=== PATIENT | male | born 1990 | race Caucasian/White ===

== ENCOUNTER 2016-10-17 09:08 | Emergency (ER) | payer OTHER ==
[2016-10-17 09:13] VITALS: BP 113/67; PULSE 67; RESP 18; TEMP 98.3; O2SAT 98
[2016-10-17] MEDS ORDERED: Sodium Chloride 0.9% 1,000 ML IV STA (09:30)
--- NOTE | 2016-10-17 09:59 | ED PDOC ---
Syncope/Near Syncope/Dizziness Time Seen by Provider: 10/17/16 09:18 Chief Complaint (Nursing): Dizziness/Lightheaded Chief Complaint (Provider): Syncope History Per: Patient History/Exam Limitations: no limitations Additional Complaint(s): Silvino Velásquez, a 26 year old male, presents to the ED for head trauma The patient states that yesterday he was celebrating for the october but stopped drinking around 9pm. He reports that around 4am he woke to urinate and says that he passed out hitting the back of his head. Patient states he is unsure of how long he was unconscious. The patient states he awoke this morning uneventfully with no change in vision, strength or balance. Denies incontinence , vomiting. Past Medical History Reviewed: Historical Data, Nursing Documentation, Vital Signs Vital Signs: Last Vital Signs Temp 98.3 F 10/17/16 09:12 Pulse 67 10/17/16 09:12 Resp 18 10/17/16 09:12 BP 113/67 10/17/16 09:12 Pulse Ox 98 10/17/16 09:12 - Medical History PMH: No Chronic Diseases - Surgical History Surgical History: No Surg Hx - Family History Family History: States: Unknown Family Hx - Social History Current smoker - smoking cessation education provided: No Alcohol: Social Drugs: Denies - Home Medications Home Medications: Ambulatory Orders Medication Instructions Recorded Ondansetron [Zofran] 4 mg PO Q6H PRN #10 tab 10/17/16 - Allergies Allergies/Adverse Reactions: Allergies Allergy/AdvReac Type Severity Reaction Status Date / Time No Known Allergies Allergy Verified 10/17/16 09:23 Review of Systems ROS Statement: Except As Marked, All Systems Reviewed And Found Negative Eyes: Negative for: Vision Change Gastrointestinal: Negative for: Vomiting Genitourinary Male: Negative for: Incontinence Neurological: Positive for: Other (LOC) Physical Exam - Reviewed Nursing Documentation Reviewed: Yes Vital Signs Reviewed: Yes - Physical Exam Appears: Positive for: Non-toxic, No Acute Distress, Uncomfortable, In Acute Distress Head Exam: Positive for: NORMOCEPHALIC. Negative for: NORMAL INSPECTION (Mild occipital tenderness.) Skin: Positive for: Normal Color, Warm, Dry Eye Exam: Positive for: Normal appearance, EOMI, PERRL ENT: Positive for: Normal ENT Inspection Neck: Positive for: Normal, Painless ROM, Supple Cardiovascular/Chest: Positive for: Regular Rate, Rhythm, Chest Non Tender. Negative for: Tachycardia Respiratory: Positive for: Normal Breath Sounds. Negative for: Wheezing, Respiratory Distress Gastrointestinal/Abdominal: Positive for: Normal Exam, Bowel Sounds, Soft. Negative for: Tenderness, Guarding, Rebound Extremity: Positive for: Normal ROM. Negative for: Tenderness, Pedal Edema, Deformity, Swelling Neurologic/Psych: Positive for: Alert, Oriented. Negative for: Motor/Sensory Deficits, Gait - Laboratory Results Result Diagrams: 10/17/16 09:56 10/17/16 09:56 - ECG O2 Sat by Pulse Oximetry: 98 (RA) Pulse Ox Interpretation: Normal Medical Decision Making Medical Decision Makin Intial Plan: 26 year old female presenting with head trauma and LOC Initial impression: * CT head w/o contrast * EKG * Alcohol serum * Comp Metabolic Panel * CBC * NS 1000mls IV 1000mls/hr * Reevaluation 1133 EKG performed, sinus bernard at 52, no cute ST changes. 1138 CT unremarkable. blood work reveals only mild hyperkalemia likely due to dehydration. Patient was given IV fluids with improvement of symptoms. Patient instructed to follow up for syncope and concussion. Scribe Attestation Documented by Adrienne Otto acting as a scribe for Lazaro Chatman MD. Provider Attestation All medical record entries made by the Scribe were at my direction and personally dictated by me. I have reviewed the chart and agree that the record accurately reflects my personal performance of the history, physical exam, medical decision making, and the department course for this patient. I have also personally directed, reviewed, and agree with the discharge instructions and disposition. Disposition - Clinical Impression Clinical Impression: Syncope, Concussion - Patient ED Disposition Is Patient to be Admitted: No Counseled Patient/Family Regarding: Studies Performed, Diagnosis, Need For Followup - Disposition Referrals: Efrain Shrestha MD [Staff Provider] - Disposition: Routine/Home Disposition Time: 11:31 Condition: STABLE Additional Instructions: Drink plenty of fluids. Avoid alcohol for at least one week. Get plenty of sleep. Avoid head trauma or athletics for at least 2 weeks after all symptoms resolve. Prescriptions: Ondansetron [Zofran] 4 mg PO Q6H PRN #10 tab PRN Reason: Nausea/Vomiting Instructions: Syncope (ED), Concussion (ED) Forms: [employer] (Polish)
[2016-10-17 10:08] LABS: BASO # 0.1 K/uL (0.0-0.2); BASO % 1.3 % (0.0-2.0); EOS # 0.2 K/uL (0.0-0.7); EOS % 2.1 % (0.0-4.0); HEMOGLOBIN 13.9 g/dL (12.0-18.0); LYMPH # 2.6 K/uL (1.0-4.3); LYMPH % 30.7 % (20.0-40.0); MEAN CELL VOLUME 88.9 fl (80.0-94.0); MEAN CORPUSCULAR HEMOGLOBIN 29.2 pg (27.0-31.0); MEAN CORPUSCULAR HGB CONC 32.9 g/dL (33.0-37.0); MEAN PLATELET VOLUME 7.8 fl (7.2-11.7); MONO # 0.4 K/uL (0.0-0.8); NEUT # 5.2 K/uL (1.8-7.0); NEUT % 60.9 % (50.0-75.0); RBC 4.76 Mil/uL (4.40-5.90); RED CELL DISTRIBUTION WIDTH 12.6 % (11.5-14.5); WHITE BLOOD COUNT 8.5 K/uL (4.8-10.8)
[2016-10-17 10:27] LABS: ALB/GLOB RATIO 1.6 (1.0-2.1); ALBUMIN 4.9 g/dL (3.5-5.0); ALT/SGPT 43 U/L (21-72); AST/SGOT 44 U/L (17-59); BLOOD UREA NITROGEN 15 mg/dl (9-20); CALCIUM 8.8 mg/dL (8.4-10.2); GFR AFRICAN-AMERICAN > 60; GFR NON-AFRICAN AMERICAN > 60
--- NOTE | 2016-10-17 11:01 | CT ---
PROCEDURE: CT HEAD WITHOUT CONTRAST. HISTORY: r/o ICH COMPARISON: None available. TECHNIQUE: Axial computed tomography images were obtained through the head/brain without intravenous contrast. Radiation dose: Total exam DLP = 1221.55 mGy-cm. This CT exam was performed using one or more of the following dose reduction techniques: Automated exposure control, adjustment of the mA and/or kV according to patient size, and/or use of iterative reconstruction technique. FINDINGS: HEMORRHAGE: No intracranial hemorrhage. BRAIN: Hardy-white matter differentiation is preserved. There is no mass, mass effect or abnormal extra-axial fluid collection. There is no territorial infarction. VENTRICLES: The ventricles are normal in size, shape and configuration. CALVARIUM: There is no calvarial fracture or extracranial soft tissue swelling. PARANASAL SINUSES: Predominantly clear. MASTOID AIR CELLS: Predominantly clear. OTHER FINDINGS: None. IMPRESSION: No acute intracranial abnormality.
--- NOTE | 2016-10-17 16:11 | CARD ---
APPROVED REPORT EKG Measurement Heart [id number] OR 158P-23 [id number] <Conclusion> Sinus bradycardia with sinus arrhythmia Otherwise normal ECG
== END 2016-10-17 11:46 | disposition home or self-care (01) ==
LOC: H.ER 09:08
DX: R55 Syncope and collapse (principal); S06.0X0A Concussion without loss of consciousness, initial encounter; W19.XXXA Unspecified fall, initial encounter; Y92.008 Other place in unspecified non-institutional (private) residence as the place of occurrence of the external cause